=== PATIENT | female | born 1995 | race Two or more races ===

== ENCOUNTER 2023-04-18 19:01 | Emergency (ER) | payer OTHER ==
[~2023-04-18] VITALS: Ht 162.6 cm; Wt 73.0 kg
[2023-04-18 19:40] VITALS: BP 120/83; PULSE 75; RESP 16; TEMP 98.4; O2SAT 100
== END 2023-04-18 22:00 | disposition left against medical advice (07) ==
LOC: ER 19:01
DX: Z53.21 Procedure and treatment not carried out due to patient leaving prior to being seen by health care provider (principal)
CPT/HCPCS: 99281